=== PATIENT | female | born 1960 | race Caucasian/White ===

== ENCOUNTER → 2018-08-03 | Outpatient (CLI) | payer OTHER ==
[~2018-08-03] MED LIST: BYSTOLIC 5 MG5 M1 PO; ESTRACE0.5 MG PO; HYDROCODONE-AP1 EAC6 PO; IBUPROFEN 800800 M1; IBUPROFEN 800800 M1 PO; NORCO 5-325 TA1 EACH PO
== END ==
LOC: M.RAD 07:50
DX: Z12.31 Encounter for screening mammogram for malignant neoplasm of breast (principal)

== ENCOUNTER → 2019-08-03 | Outpatient (CLI) | payer OTHER | LOC: M.RAD 09:00 | DX: Z12.31 Encounter for screening mammogram for malignant neoplasm of breast (principal) ==

== ENCOUNTER → 2020-07-29 | Outpatient (CLI) | payer OTHER | LOC: M.RAD 09:00 | PROVIDERS: ATTEND Family Medicine | DX: Z12.31 Encounter for screening mammogram for malignant neoplasm of breast (principal) ==

== ENCOUNTER → 2021-07-22 | Outpatient (CLI) | payer OTHER | LOC: M.RAD 08:57 | PROVIDERS: ATTEND Family Medicine | DX: Z12.31 Encounter for screening mammogram for malignant neoplasm of breast (principal) ==